=== PATIENT | female | born 1960 | race Caucasian/White ===

== ENCOUNTER → 2022-05-12 | Emergency (ER) | payer OTHER ==
[~2022-05-12] MED LIST: Bacitracin 1 PK ONE; Lidocaine 1% (PF) 30 ML VIAL ONE
== END ==
LOC: NAV ERS 20:52
DX: S61.412A Laceration without foreign body of left hand, initial encounter (principal); E78.5 Hyperlipidemia, unspecified; I10 Essential (primary) hypertension; E03.9 Hypothyroidism, unspecified; Z79.899 Other long term (current) drug therapy; W45.8XXA Other foreign body or object entering through skin, initial encounter
CPT/HCPCS: 12001; J2001